=== PATIENT | female | born 1980 | race Caucasian/White ===

== ENCOUNTER 2017-03-20 02:14 | Emergency (ER) | payer OTHER ==
[~2017-03-20 02:14] MED LIST: ALBUTEROL17 G1 IH; CIPRO PO; FLAGYL PO; LORTAB 5/500 TA1 TA2 PO; MACRODANTIN PO; NO MEDICATIONS; PEN-VEE K PO; TESSALON200 MG PO; ZITHROMAX1 G/PKT PO
== END 2017-03-20 03:05 | disposition left against medical advice (07) ==
LOC: CED 02:14
DX: Z53.21 Procedure and treatment not carried out due to patient leaving prior to being seen by health care provider (principal)